=== PATIENT | male | born 1960 | race American Indian/Alaskan Native ===

== ENCOUNTER 2019-01-16 18:26 | Emergency (ER) | payer MEDICAID ==
--- NOTE | 2019-01-16 18:34 | Emergency Department Report ---
Blank Doc - Documentation Documentation: This is a 58-year-old male that presents with URI symptoms. This initial assessment/diagnostic orders/clinical plan/treatment(s) is/are subject to change based on patient's health status, clinical progression and re- assessment by fellow clinical providers in the ED. Further treatment and workup at subsequent clinical providers discretion. Patient/guardians urged not to elope from the ED as their condition may be serious if not clinically assessed and managed. Initial orders include: 1- Patient sent to [facility] for further evaluation and treatment 2- CXR
[2019-01-16 18:35] VITALS: BP 119/87
--- NOTE | 2019-01-16 20:45 | XRay Report ---
PROCEDURE: XR CHEST ROUTINE 2V TECHNIQUE: PA and lateral chest radiographs were obtained. HISTORY: cough COMPARISONS: None. FINDINGS: Heart: Normal. Mediastinum/Vessels: Normal. Lungs/Pleural space: Lungs are hyperinflated. There are no confluent infiltrates or mass lesions. Pl eural spaces are clear.. Bony thorax: Mild degree levoscoliosis is noted. IMPRESSION: COPD No acute pulmonary process. This document is electronically signed by Dion Galvan MD., January 16 2019 08:43:34 PM ET
--- NOTE | 2019-01-16 23:33 | Emergency Department Report ---
- General Chief Complaint: Upper Respiratory Infection Stated Complaint: BODY PAIN/FEVER Time Seen by Provider: 01/16/19 18:34 Source: patient Mode of arrival: Ambulatory Limitations: No Limitations - History of Present Illness Initial Comments: Pt is a 58 yo male who presents to the ED with c/o a cough that began two days ago. he states he has beige color sputum production. He has associated chills, diaphoresis, subjective fever, generalized body aches, and chest pain. He states he has substernal CP and describes it as a pressure. He is a current every day smoker. He denies any sick contacts. He has not tried any treatment. He has not taken any tylenol or ibuprofen. - Related Data Previous Rx's Medication Instructions Recorded Last Taken Type ALBUTEROL Inhaler (OR & NICU) 1 puff IH Q6HR PRN #200 inha 01/17/19 Unknown Rx [Proair] Azithromycin [Zithromax] 250 mg PO DAILY 5 Days #6 tablet 01/17/19 Unknown Rx Benzonatate [Tessalon Perles] 100 mg PO Q8HR PRN #20 capsule 01/17/19 Unknown Rx Prednisone [predniSONE 10 mg 10 mg PO .TAPER 6 Days #1 tab.ds.pk 01/17/19 Unknown Rx (6-Day Pack, 21 Tabs)] Allergies Allergy/AdvReac Type Severity Reaction Status Date / Time No Known Allergies Allergy Verified 05/25/16 12:29 ED Review of Systems ROS: Stated complaint: BODY PAIN/FEVER Other details as noted in HPI Comment: All other systems reviewed and negative ED Past Medical Hx - Past Medical History Previous Medical History?: No Hx Psychiatric Treatment: Yes - Surgical History Past Surgical History?: No - Social History Smoking Status: Current Every Day Smoker Substance Use Type: None - Medications Home Medications: Home Medications Medication Instructions Recorded Confirmed Last Taken Type ALBUTEROL Inhaler (OR & NICU) 1 puff IH Q6HR PRN #200 inha 01/17/19 Unknown Rx [Proair] Azithromycin [Zithromax] 250 mg PO DAILY 5 Days #6 tablet 01/17/19 Unknown Rx Benzonatate [Tessalon Perles] 100 mg PO Q8HR PRN #20 capsule 01/17/19 Unknown Rx Prednisone [predniSONE 10 mg 10 mg PO .TAPER 6 Days #1 tab.ds.pk 01/17/19 Unknown Rx (6-Day Pack, 21 Tabs)] ED Physical Exam - General Limitations: No Limitations General appearance: alert, in no apparent distress - Head Head exam: Present: atraumatic, normocephalic - Eye Eye exam: Present: normal appearance - ENT ENT exam: Present: mucous membranes moist - Respiratory Respiratory exam: Present: normal lung sounds bilaterally. Absent: respiratory distress, wheezes, rales, rhonchi, stridor, chest wall tenderness, accessory muscle use, decreased breath sounds, prolonged expiratory - Cardiovascular Cardiovascular Exam: Present: regular rate, normal rhythm, normal heart sounds. Absent: systolic murmur, rubs, gallop - Neurological Exam Neurological exam: Present: alert, oriented X3 - Psychiatric Psychiatric exam: Present: normal affect, normal mood - Skin Skin exam: Present: warm, dry, intact ED Course Vital Signs 01/16/19 01/16/19 18:33 18:59 Temperature 98.1 F Pulse Rate 94 H 95 H Respiratory 18 20 Rate Blood Pressure 119/87 O2 Sat by Pulse 96 97 Oximetry ED Medical Decision Making - Lab Data Result diagrams: 01/16/19 23:35 01/16/19 23:35 - EKG Data EKG shows normal: sinus rhythm, axis, intervals Rate: normal - EKG Data 01/17/19 05:25 LVH, non specific t wave changes, no STEMI - Radiology Data Radiology results: report reviewed PROCEDURE: XR CHEST ROUTINE 2V TECHNIQUE: PA and lateral chest radiographs were obtained. HISTORY: cough COMPARISONS: None. FINDINGS: Heart: Normal. Mediastinum/Vessels: Normal. Lungs/Pleural space: Lungs are hyperinflated. There are no confluent infiltrates or mass lesions. Pleural spaces are clear.. Bony thorax: Mild degree levoscoliosis is noted. IMPRESSION: COPD No acute pulmonary process. This document is electronically signed by Dion Galvan MD., January 16 2019 08:43:34 PM ET - Medical Decision Making Pt is a 58 yo male who presents to the ED with c/o a cough that began two days ago. he states he has beige color sputum production. He has associated chills, diaphoresis, subjective fever, generalized body aches, and chest pain. He states he has substernal CP and describes it as a pressure. He is a current every day smoker. He denies any sick contacts. He has not tried any treatment. He has not taken any tylenol or ibuprofen. CXR shows COPD otherwise normal. EKG with no acute abnormality. trop negative x2. Labs WNL. VSS. CP unlikely to be cardiac in nature, most likely due to frequent coughing. Will have pt follow up with PCP in the next 2-3 days. Advised to take all medication as prescribed for bronchitis. Return to the ED for any new or worsening symptoms. - Differential Diagnosis URI, PNA, Bronchitis, COPD Critical care attestation.: If time is entered above; I have spent that time in minutes in the direct care of this critically ill patient, excluding procedure time. ED Disposition Clinical Impression: COPD (chronic obstructive pulmonary disease) Qualifiers: COPD type: unspecified COPD Qualified Code(s): J44.9 - Chronic obstructive pulmonary disease, unspecified Acute bronchitis Qualifiers: Bronchitis organism: unspecified organism Qualified Code(s): J20.9 - Acute bronchitis, unspecified Disposition: - TO HOME OR SELFCARE Is pt being admited?: No Does the pt Need Aspirin: No Condition: Stable Instructions: How to Stop Smoking (ED), Acute Bronchitis (ED), Chronic Obstructive Pulmonary Disease (ED) Additional Instructions: Follow up with your primary care doctor in the next 2-3 days. Take all medication as prescribed. please stop smoking. Return to the emergency room for any new or worsening symptoms. Prescriptions: Prednisone [predniSONE 10 mg (6-Day Pack, 21 Tabs)] 10 mg PO .TAPER 6 Days #1 tab.ds.pk ALBUTEROL Inhaler (OR & NICU) [Proair] 1 puff IH Q6HR PRN #200 inha PRN Reason: Shortness Of Breath Benzonatate [Tessalon Perles] 100 mg PO Q8HR PRN #20 capsule PRN Reason: Cough Azithromycin [Zithromax] 250 mg PO DAILY 5 Days #6 tablet Referrals: MANJULA MATRE MD [Primary Care Provider] - 2-3 Days Time of Disposition: 04:40 Print Language: ALBANIAN
[2019-01-17 00:23] LABS: Basophils % (Auto) 0.4 % (0.0-1.8); Hematocrit 48.2 % (35.5-45.6); Hemoglobin 16.3 gm/dl (11.8-15.2); Lymphocytes # (Auto) 0.5 K/mm3 (1.2-5.4); Lymphocytes % (Auto) 11.6 % (13.4-35.0); Mean Corpuscular HGB Conc 34 % (32-34); Mean Corpuscular Volume 84 fl (84-94); Monocytes # (Auto) 0.5 K/mm3 (0.0-0.8); Monocytes % (Auto) 11.7 % (0.0-7.3); Platelet Count 177 K/mm3 (140-440); Red Blood Count 5.73 M/mm3 (3.65-5.03); Red Cell Distribution Width 14.3 % (13.2-15.2)
[2019-01-17 00:37] LABS: INR 0.98 (0.87-1.13)
[2019-01-17 00:38] LABS: Partial Thromboplastin Time 26.2 Sec. (24.2-36.6)
[2019-01-17 00:49] LABS: Alanine Aminotransferase 19 units/L (7-56); Albumin 4.1 g/dL (3.9-5); BUN/Creatinine Ratio 14; Blood Urea Nitrogen 10 mg/dL (9-20); Calcium 9.7 mg/dL (8.4-10.2); Hemolysis Index 8
== END 2019-01-17 04:50 | disposition home or self-care (01) ==
LOC: ED 18:26
DX: J20.9 Acute bronchitis, unspecified (principal); J44.9 Chronic obstructive pulmonary disease, unspecified; F17.200 Nicotine dependence, unspecified, uncomplicated
CPT/HCPCS: 36415; 71046; 80053; 84484; 85025; 85610; 85730; 93005; 93010

== ENCOUNTER 2019-03-25 10:39 | Emergency (ER) | payer MEDICAID ==
[2019-03-25 11:02] VITALS: BP 102/69
--- NOTE | 2019-03-25 11:09 | Emergency Department Report ---
Blank Doc - Documentation Documentation: This is a 58-year-old male that presents with groin pain with radiation to nisreen ticles x1 month. Also has difficulty urinating. This initial assessment/diagnostic orders/clinical plan/treatment(s) is/are subject to change based on patient's health status, clinical progression and re- assessment by fellow clinical providers in the ED. Further treatment and workup at subsequent clinical providers discretion. Patient/guardians urged not to elope from the ED as their condition may be serious if not clinically assessed and managed. Initial orders include: 1- Patient sent to [facility] for further evaluation and treatment 2- Doppler testicular US 3- UA
--- NOTE | 2019-03-25 11:33 | Emergency Department Report ---
ED Abdominal Pain HPI - General Chief Complaint: Urogenital-Male Stated Complaint: GROIN PAIN/EXTREME Time Seen by Provider: 03/25/19 11:08 Source: patient Mode of arrival: Ambulatory Limitations: No Limitations - History of Present Illness Initial Comments: Mr. Valdes is a 58 yo male who presents with groin pain and bulge for one month. It has been getting larger and larger. Does not go in. 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 Mild pain at this time. No constipation. MD Complaint: other (groin pain) -: Gradual, month(s) (1) Radiation: none Migration to: no migration Severity: mild Quality: aching Consistency: constant Worsens With: movement Associated Symptoms: denies other symptoms - Related Data Previous Rx's Medication Instructions Recorded Last Taken Type ALBUTEROL Inhaler (OR & NICU) 1 puff IH Q6HR PRN #200 inha 01/17/19 Unknown Rx [Proair] Azithromycin [Zithromax] 250 mg PO DAILY 5 Days #6 tablet 01/17/19 Unknown Rx Benzonatate [Tessalon Perles] 100 mg PO Q8HR PRN #20 capsule 01/17/19 Unknown Rx Prednisone [predniSONE 10 mg 10 mg PO .TAPER 6 Days #1 tab.ds.pk 01/17/19 Unknown Rx (6-Day Pack, 21 Tabs)] Allergies Allergy/AdvReac Type Severity Reaction Status Date / Time No Known Allergies Allergy Verified 03/25/19 11:00 ED Review of Systems ROS: Stated complaint: GROIN PAIN/EXTREME Other details as noted in HPI Comment: All other systems reviewed and negative Constitutional: denies: fever, malaise Gastrointestinal: abdominal pain ED Past Medical Hx - Past Medical History Previous Medical History?: No Hx Psychiatric Treatment: Yes - Surgical History Past Surgical History?: No - Social History Smoking Status: Current Every Day Smoker Substance Use Type: Alcohol - Medications Home Medications: Home Medications Medication Instructions Recorded Confirmed Last Taken Type ALBUTEROL Inhaler (OR & NICU) 1 puff IH Q6HR PRN #200 inha 01/17/19 Unknown Rx [Proair] Azithromycin [Zithromax] 250 mg PO DAILY 5 Days #6 tablet 01/17/19 Unknown Rx Benzonatate [Tessalon Perles] 100 mg PO Q8HR PRN #20 capsule 01/17/19 Unknown Rx Prednisone [predniSONE 10 mg 10 mg PO .TAPER 6 Days #1 tab.ds.pk 01/17/19 Unknown Rx (6-Day Pack, 21 Tabs)] ED Physical Exam - General Limitations: No Limitations General appearance: alert, in no apparent distress - Head Head exam: Present: atraumatic, normocephalic - Eye Eye exam: Present: normal appearance - ENT ENT exam: Present: mucous membranes moist - Neck Neck exam: Present: normal inspection, full ROM - Respiratory Respiratory exam: Present: normal lung sounds bilaterally. Absent: respiratory distress, wheezes, rales, rhonchi - Cardiovascular Cardiovascular Exam: Present: regular rate, normal rhythm, normal heart sounds. Absent: systolic murmur, diastolic murmur, rubs, gallop - GI/Abdominal GI/Abdominal exam: Present: soft, normal bowel sounds. Absent: distended, tenderness, guarding - Rectal Rectal exam: Present: deferred - exam: Present: normal inspection, circumcision, other (small inguinal hernia right). Absent: testicular tenderness, urethral discharge, scrotal swelling, vertical testicular lie External exam: Present: normal external exam - Extremities Exam Extremities exam: Present: normal inspection - Back Exam Back exam: Present: normal inspection - Neurological Exam Neurological exam: Present: alert, oriented X3 - Psychiatric Psychiatric exam: Present: normal affect, normal mood - Skin Skin exam: Present: warm, dry, intact, normal color. Absent: rash ED Course Vital Signs 03/25/19 11:00 Temperature 98.3 F Pulse Rate 86 Respiratory 16 Rate Blood Pressure 102/69 O2 Sat by Pulse 98 Oximetry ED Medical Decision Making - Medical Decision Making Right inguinal hernia small easily reduced referred to general surgery on elective basis Critical care attestation.: If time is entered above; I have spent that time in minutes in the direct care of this critically ill patient, excluding procedure time. ED Disposition Clinical Impression: Inguinal hernia, right Disposition: [id number]-01 TO HOME OR SELFCARE Is pt being admited?: No Does the pt Need Aspirin: No Condition: Stable Instructions: Inguinal Hernia (ED) Referrals: DASHAWN WALLACE MD [Staff Physician] - [facility]
== END 2019-03-25 11:45 | disposition home or self-care (01) ==
LOC: ED 10:39
DX: K40.90 Unilateral inguinal hernia, without obstruction or gangrene, not specified as recurrent (principal); F17.200 Nicotine dependence, unspecified, uncomplicated
CPT/HCPCS: 87086; 99283

== ENCOUNTER 2019-11-15 10:09 | Outpatient (CLI) | payer MEDICAID ==
--- NOTE | 2019-11-15 11:04 | XRay Report ---
CHEST 2 VIEWS INDICATION / CLINICAL INFORMATION: ENCOUNTER FOR PREPROCEDURAL CARDIOVASCULAR EXAM. COMPARISON: 2 views of the chest from 01/16/2019. FINDINGS: SUPPORT DEVICES: None. HEART / MEDIASTINUM: No significant abnormality. LUNGS / PLEURA: No significant pulmonary or pleural abnormality. No pneumothorax. ADDITIONAL FINDINGS: No significant additional findings. IMPRESSION: 1. No acute abnormality of the chest. Signer Name: Sam Shukla MD Signed: 11/15/2019 11:00 AM Workstation Name: [id number]
== END 2019-11-15 10:10 | disposition home or self-care (01) ==
LOC: XRAY 10:09
PROVIDERS: ATTEND Internal Medicine
DX: Z01.810 Encounter for preprocedural cardiovascular examination (principal)
CPT/HCPCS: 71046

== ENCOUNTER 2019-12-08 12:56 | Emergency (ER) | payer MEDICAID ==
[2019-12-08 14:16] LABS: Basophils % (Auto) 0.3 % (0.0-1.8); Hematocrit 50.1 % (35.5-45.6); Hemoglobin 16.4 gm/dl (11.8-15.2); Lymphocytes # (Auto) 0.7 K/mm3 (1.2-5.4); Lymphocytes % (Auto) 10.6 % (13.4-35.0); Mean Corpuscular HGB Conc 33 % (32-34); Mean Corpuscular Volume 84 fl (84-94); Monocytes # (Auto) 0.8 K/mm3 (0.0-0.8); Monocytes % (Auto) 10.9 % (0.0-7.3); Platelet Count 185 K/mm3 (140-440); Red Blood Count 5.94 M/mm3 (3.65-5.03); Red Cell Distribution Width 14.5 % (13.2-15.2)
[2019-12-08 14:38] LABS: Alanine Aminotransferase 14 units/L (7-56); Albumin 4.1 g/dL (3.9-5); BUN/Creatinine Ratio 11; Blood Urea Nitrogen 10 mg/dL (9-20); Calcium 9.5 mg/dL (8.4-10.2); Hemolysis Index 16
--- NOTE | 2019-12-08 17:02 | Emergency Department Report ---
Chief Complaint: Pain General Stated Complaint: HOT & COLD SEATS PAIN IN GROIN Time Seen by Provider: 12/08/19 13:32 - ROS Review of Systems: 59 y/o M p/w a cc of AP. H/o hernias. no n/v. Last bm this AM WNL - Exam Vital Signs: Vital Signs 12/08/19 12/08/19 13:02 13:32 Temperature 98.4 F Pulse Rate 102 H 100 H Respiratory 18 Rate Blood Pressure 139/96 O2 Sat by Pulse 97 97 Oximetry MSE screening note: Focused history and physical exam performed. Due to findings the following was ordered: cbc, cmp, lipase ct abd/pel ED Medical Decision Making - Lab Data Result diagrams: 12/08/19 14:01 12/08/19 14:01 ED Disposition for MSE Condition: Stable
[2019-12-08] MEDS ORDERED: METOCLOPRAMIDE 10 MG TAB PO ONE (17:30)
[2019-12-08] MEDS ORDERED: ACETAMINOPHEN 325 MG/10.15 ML ORAL LIQD UNIT DOSE PO ONE (17:30)
--- NOTE | 2019-12-08 17:31 | Emergency Department Report ---
ED General Adult HPI - General Chief complaint: Pain General Stated complaint: HOT & COLD SEATS PAIN IN GROIN Time Seen by Provider: 12/08/19 13:32 Source: patient, RN notes reviewed, old records reviewed Mode of arrival: Ambulatory Limitations: No Limitations - History of Present Illness Initial comments: The patient is a pleasant 59-year-old gentleman. The patient is not known to myself previously. The patient presents to the ER with multiple complaints. His first complaint is headache. The headache is frontal and bitemporal. The headache is intermittent over the past few days. He gets a headache like this once or twice a month. The headache is not described as sudden or maximal in onset. It is not described as the most intense headache of his life. There is no neck pain, there is no neck stiffness. He endorses an additional complaints of decreased appetite, bilateral inguinal swelling and discomfort, right greater than left, and this has been present for a few months. Apparently, he has tried to follow-up with an outpatient surgeon, but has not been able to secure outpatient surgical follow-up. He denies irritative and obstructive urinary symptoms. He endorses black stool. He does not take Pepto-Bismol, and he does not take anticoagulant therapy. He also endorses intermittent hot and cold feeling. He does not have chest pain. He does not have shortness of breath. He denies documented fever. He reports that he has some difficulty swallowing. He is able to drink liquids without difficulty. -: Gradual, week(s), month(s) Location: abdomen Quality: aching Consistency: intermittent Improves with: rest Worsens with: movement - Related Data Previous Rx's Medication Instructions Recorded Last Taken Type Albuterol INH(or & Nicu Only) 1 puff IH Q6HR PRN #200 inha 01/17/19 Unknown Rx [Proair] Azithromycin [Zithromax] 250 mg PO DAILY 5 Days #6 tablet 01/17/19 Unknown Rx Benzonatate [Tessalon Perles] 100 mg PO Q8HR PRN #20 capsule 01/17/19 Unknown Rx Prednisone [predniSONE 10 mg 10 mg PO .TAPER 6 Days #1 tab.ds.pk 01/17/19 Unknown Rx (6-Day Pack, 21 Tabs)] Acetaminophen [Non-Aspirin Extra 500 mg PO Q6HR PRN #30 tablet 12/08/19 Unknown Rx Strength] Ondansetron [Zofran Odt] 4 mg PO Q8HR PRN #20 tab.rapdis 12/08/19 Unknown Rx Allergies Allergy/AdvReac Type Severity Reaction Status Date / Time No Known Allergies Allergy Verified 03/25/19 11:00 ED Review of Systems ROS: Stated complaint: HOT & COLD SEATS PAIN IN GROIN Other details as noted in HPI Constitutional: malaise. denies: fever Eyes: denies: eye discharge ENT: denies: congestion Respiratory: denies: wheezing Cardiovascular: denies: syncope Gastrointestinal: nausea. denies: hematemesis, hematochezia Genitourinary: other (Right sided inguinal pain and swelling). denies: dysuria Musculoskeletal: denies: myalgia Skin: denies: lesions Neurological: weakness ED Past Medical Hx - Past Medical History Previous Medical History?: Yes Hx Psychiatric Treatment: Yes Additional medical history: Wale inquinal hernia - Surgical History Past Surgical History?: No - Social History Smoking Status: Heavy Tobacco Smoker Substance Use Type: None - Medications Home Medications: Home Medications Medication Instructions Recorded Confirmed Last Taken Type Albuterol INH(or & Nicu Only) 1 puff IH Q6HR PRN #200 inha 01/17/19 Unknown Rx [Proair] Azithromycin [Zithromax] 250 mg PO DAILY 5 Days #6 tablet 01/17/19 Unknown Rx Benzonatate [Tessalon Perles] 100 mg PO Q8HR PRN #20 capsule 01/17/19 Unknown Rx Prednisone [predniSONE 10 mg 10 mg PO .TAPER 6 Days #1 tab.ds.pk 01/17/19 Unknown Rx (6-Day Pack, 21 Tabs)] Acetaminophen [Non-Aspirin Extra 500 mg PO Q6HR PRN #30 tablet 12/08/19 Unknown Rx Strength] Ondansetron [Zofran Odt] 4 mg PO Q8HR PRN #20 tab.rapdis 12/08/19 Unknown Rx ED Physical Exam - General Limitations: No Limitations, Other (During the entire history and physical examination, 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 Absent: nystagmus - ENT ENT exam: Present: normal exam, normal orophraynx, mucous membranes moist, normal external ear exam - Neck Neck exam: Present: normal inspection, full ROM. Absent: tenderness, meningismus - Respiratory Respiratory exam: Present: normal lung sounds bilaterally. Absent: respiratory distress - Cardiovascular Cardiovascular Exam: Present: regular rate, normal rhythm, normal heart sounds. Absent: bradycardia, tachycardia, irregular rhythm, systolic murmur, diastolic murmur, rubs, gallop - GI/Abdominal GI/Abdominal exam: Present: soft, normal bowel sounds, hernia (There is a right- sided inguinal hernia, which is easily reducible). Absent: distended, tenderness, guarding, rebound, rigid, pulsatile mass - Rectal Rectal exam: Present: normal inspection, normal rectal tone. Absent: heme (-) stool, heme (+) stool, black stool, bloody stool - exam: Present: normal inspection, other (There is normal testicular lie. Th ere is normal cremasteric reflex. There is no testicular tenderness. There is no testicular swelling). Absent: testicular tenderness External exam: Present: normal external exam. Absent: erythema, swelling, lacerations, ecchymosis - Extremities Exam Extremities exam: Present: normal inspection, full ROM, other (2+ pulses noted in the bilateral upper and lower extremities. There is no palpable cord. negative Homans sign. Muscular compartments are soft. The pelvis is stable.). Absent: pedal edema, joint swelling, calf tenderness - Back Exam Back exam: Present: normal inspection, full ROM. Absent: tenderness, CVA tenderness (R), CVA tenderness (L), paraspinal tenderness, vertebral tenderness - Neurological Exam Neurological exam: Present: alert, oriented X3, normal gait, other (There is no facial droop. The tongue is midline. Extraocular movements are intact bilaterally. There is 5 out of 5 strength in bilateral upper and lower extre mities. Sensation is intact to light touch bilateral upper and lower extremities. There is a normal gait.). Absent: motor sensory deficit - Psychiatric Psychiatric exam: Present: normal affect, normal mood - Skin Skin exam: Present: warm, dry, intact, normal color. Absent: rash ED Course Vital Signs 12/08/19 12/08/19 13:02 13:32 Temperature 98.4 F Pulse Rate 102 H 100 H Respiratory 18 Rate Blood Pressure 139/96 O2 Sat by Pulse 97 97 Oximetry - Reevaluation(s) Reevaluation #1: 12/08/19 18:14 Differential diagnosis, including not limited to: Migraine headache, tension headache, cluster headache, inguinal hernia, GERD, gastritis, hiatal hernia, enteritis Assessment and plan: 59-year-old gentleman with multiple complaints. Complaints #1; headache GCS 15, NIH score of 0. No past-pointing, no pronator drift, normal [id number]-tp-[id number], normal gait, GCS 15, NIH score 0. Headache historically has numerous benign features, we will treat his headache supportively and symptomatically with Reglan and Tylenol. There is no neck pain or neck stiffness, no fever, and based off of the historical features, this is very unlikely to be dangerous etiology of headache. Complaints #2, acute on chronic inguinal hernia; hernia is reducible. It is minimally tender. CT scan abdomen pelvis shows no acute surgical process. Rectal exam shows brown stool that is guaiac negative. As a courtesy, I will discuss with our general surgeon on-call to help expedite outpatient follow-up. Patient is already tolerating liquid feeds, and can be discharged with Reglan, acetaminophen, outpatient follow-up. No documented fever in the ER. CK reviewed and appreciated. Tachycardia resolved. Tolerating liquid feeds. This patient does not appear to have an emergent medical condition at this time. He can follow-up with an outpatient. - Consultations Consultation #1: 12/08/19 18:21 d/w Dr Kimo Bailey, who will be happy to see the patient as an outpatient this week ED Medical Decision Making - Lab Data Result diagrams: 12/08/19 14:01 12/08/19 14:01 Vital Signs 12/08/19 12/08/19 13:02 13:32 Temperature 98.4 F Pulse Rate 102 H 100 H Respiratory 18 Rate Blood Pressure 139/96 O2 Sat by Pulse 97 97 Oximetry Lab Results 12/08/19 12/08/19 12/08/19 Range/Units 14:01 14:01 14:01 WBC 7.0 (4.5-11.0) K/mm3 RBC 5.94 H (3.65-5.03) M/mm3 Hgb 16.4 H (11.8-15.2) gm/dl Hct 50.1 H (35.5-45.6) % MCV 84 (84-94) fl MCH 28 (28-32) pg MCHC 33 (32-34) % RDW 14.5 (13.2-15.2) % Plt Count 185 (140-440) K/mm3 Lymph % (Auto) 10.6 L (13.4-35.0) % Tift % (Auto) 10.9 H (0.0-7.3) % Eos % (Auto) 0.0 (0.0-4.3) % Baso % (Auto) 0.3 (0.0-1.8) % Lymph # 0.7 L (1.2-5.4) K/mm3 Tift # 0.8 (0.0-0.8) K/mm3 Eos # 0.0 (0.0-0.4) K/mm3 Baso # 0.0 (0.0-0.1) K/mm3 Seg Neutrophils % 78.2 H (40.0-70.0) % Seg Neutrophils # 5.5 (1.8-7.7) K/mm3 Sodium 136 L (137-145) mmol/L Potassium 4.2 (3.6-5.0) mmol/L Chloride 99.7 (98-107) mmol/L Carbon Dioxide 22 (22-30) mmol/L Anion Gap 19 mmol/L BUN 10 (9-20) mg/dL Creatinine 0.9 (0.8-1.5) mg/dL Estimated GFR > 60 ml/min BUN/Creatinine Ratio 11 % Glucose 94 (75-100) mg/dL Calcium 9.5 (8.4-10.2) mg/dL Total Bilirubin 0.30 (0.1-1.2) mg/dL AST 24 (5-40) units/L ALT 14 (7-56) units/L Alkaline Phosphatase 95 (35-129) units/L Total Creatine Kinase 431 H (55-170) units/L Total Protein 7.6 (6.3-8.2) g/dL Albumin 4.1 (3.9-5) g/dL Albumin/Globulin Ratio 1.2 % Lipase 15 (13-60) units/L - Radiology Data Radiology results: report reviewed, image reviewed Print Report Referring Physician: LINDA APPLE Patient Name: TONO FERNANDES Date of : 1960 Sex: Male Report Date: 2019-12-08 Report Status: Finalized Findings [facility] [address] [place] [address] Cat Scan Report Signed Patient: TONO FERNANDES MR#: [id number] : 1960 Acct:[id number] Age/Sex: 59 / M ADM Date: 12/08/19 Loc: ED Attending Dr: Ordering Physician: LINDA APPLE MD Date of Service: 12/08/19 Procedure(s): CT abdomen pelvis w con Accession Number(s): [id number] cc: LINDA APPLE MD CT ABDOMEN AND PELVIS WITH CONTRAST INDICATION / CLINICAL INFORMATION: diffuse abd pain, h/o hernias. TECHNIQUE: Axial CT images were obtained through the abdomen and pelvis after 100 mL Omnipaque [address] scans at this location are performed using CT dose reduction for ALARA by means of automated exposure control. COMPARISON: None available. FINDINGS: LOWER CHEST: No significant abnormality. LIVER: No significant abnormality. GALLBLADDER: Absent BILE DUCTS: No significant abnormality. PANCREAS: No significant abnormality. SPLEEN: No significant abnormality. ADRENALS: No significant abnormality. RIGHT KIDNEY and URETER: Simple cysts but no significant abnormality. LEFT KIDNEY and URETER: Simple cysts but no significant abnormality. STOMACH and SMALL BOWEL: Fluid- filled, nondilated loops of small bowel. No obstruction. COLON: No significant abnormality. APPENDIX: Not visualized. PERITONEUM: Small amount of free fluid in the pelvis. No free air. No fluid collection. LYMPH NODES: No significant adenopathy. AORTA and ARTERIES: No significant abnormality. IVC and VEINS: No significant abnormality. URINARY BLADDER: No significant abnormality. REPRODUCTIVE ORGANS: No significant abnormality. ADDITIONAL FINDINGS: Small amount of fluid in the right inguinal canal but no significant inguinal hernia. SKELETAL SYSTEM: No significant abnormality. IMPRESSION: 1. Fluid-filled, nondilated small bowel may represent enteritis. 2. No significant abdominal wall hernia. Signer Name: Zhanna Valle MD Signed: 12/08/2019 6:02 PM Workstation Name: [id number] Transcribed By: DT Dictated By: Fish Valle MD Sabine ctronically Authenticated By: Fish Valle MD Signed Date/Time: 12/08/19 1802 DD/ 175 TD/TT: Critical care attestation.: If time is entered above; I have spent that time in minutes in the direct care of this critically ill patient, excluding procedure time. ED Disposition Clinical Impression: Inguinal hernia of right side without obstruction or gangrene Disposition: - TO HOME OR SELFCARE Is pt being admited?: No Does the pt Need Aspirin: No Condition: Stable Additional Instructions: Drink 4 to 6 cups of water per day. Avoid consumption of Motrin, ibuprofen, Naprosyn, Aleve and alcohol. Make certain to eat plenty of fiber, vegetables, and lean protein. Take the pain medication and nausea medication as needed and directed. Follow-up with either of the general surgeons by the end of the week. Return to the emergency room right away with new, worsened or different symptoms, or symptoms not present on the initial emergency room evaluation. If patient takes metformin medication, he should not take it for the next 2 days. Referrals: ROB MARTINEZ DO [Staff Physician] - 3-5 Days PRIMARY CAREMD [Primary Care Provider] - 3-5 Days BRITTANY BAILEY MD [Staff Physician] - 2-3 Days ([facility] [phone])
--- NOTE | 2019-12-08 18:06 | Cat Scan Report ---
CT ABDOMEN AND PELVIS WITH CONTRAST INDICATION / CLINICAL INFORMATION: diffuse abd pain, h/o hernias. TECHNIQUE: Axial CT images were obtained through the abdomen and pelvis after 100 mL Omnipaque [address] scans at this location are performed using CT dose reduction for ALARA by means of automated exposure control. COMPARISON: None available. FINDINGS: LOWER CHEST: No significant abnormality. LIVER: No significant abnormality. GALLBLADDER: Absent BILE DUCTS: No significant abnormality. PANCREAS: No significant abnormality. SPLEEN: No significant abnormality. ADRENALS: No significant abnormality. RIGHT KIDNEY and URETER: Simple cysts but no significant abnormality. LEFT KIDNEY and URETER: Simple cysts but no significant abnormality. STOMACH and SMALL BOWEL: Fluid-filled, nondilated loops of small bowel. No obstruction. COLON: No significant abnormality. APPENDIX: Not visualized. PERITONEUM: Small amount of free fluid in the pelvis. No free air. No fluid collection. LYMPH NODES: No significant adenopathy. AORTA and ARTERIES: No significant abnormality. IVC and VEINS: No significant abnormality. URINARY BLADDER: No significant abnormality. REPRODUCTIVE ORGANS: No significant abnormality. ADDITIONAL FINDINGS: Small amount of fluid in the right inguinal canal but no significant inguinal he rnia. SKELETAL SYSTEM: No significant abnormality. IMPRESSION: 1. Fluid-filled, nondilated small bowel may represent enteritis. 2. No significant abdominal wall hernia. Signer Name: Zhanna Valle MD Signed: 12/08/2019 6:02 PM Workstation Name: [id number]
[2019-12-08 18:34] VITALS: BP 137/97
== END 2019-12-08 18:45 | disposition home or self-care (01) ==
LOC: ED 12:56
DX: K40.90 Unilateral inguinal hernia, without obstruction or gangrene, not specified as recurrent (principal); Z79.899 Other long term (current) drug therapy
CPT/HCPCS: 36415; 74177; 80053; 82271; 82550; 83690; 85025; 99284; Q9967

== ENCOUNTER 2020-06-11 09:08 | Day surgery (SDC) | payer MEDICAID ==
[2020-06-10 09:28] LABS: Hematocrit 47.6 % (35.5-45.6); Hemoglobin 15.8 gm/dl (11.8-15.2); Mean Corpuscular HGB Conc 33 % (32-34); Mean Corpuscular Volume 85 fl (84-94); Platelet Count 180 K/mm3 (140-440); Red Blood Count 5.59 M/mm3 (3.65-5.03); Red Cell Distribution Width 14.7 % (13.2-15.2)
[2020-06-10 09:46] LABS: BUN/Creatinine Ratio 11; Blood Urea Nitrogen 10 mg/dL (9-20); Calcium 9.6 mg/dL (8.4-10.2); Hemolysis Index 5
--- NOTE | 2020-06-10 12:11 | Short Stay Summary ---
Short Stay Documentation Date of service: 06/11/20 - History H&P: obtained from office - Allergies and Medications Current Medications: Allergies No Known Allergies Allergy (Verified 03/25/19 11:00) Home Medications Medication Instructions Recorded Confirmed Last Taken Type Centrum Silver Men Tablet 1 tab PO DAILY 06/03/20 06/03/20 Unknown History - Physical exam General appearance: no acute distress Lungs: Normal air movement Neurological: Normal speech - Brief post op/procedure progress note Date of procedure: 06/11/20 (dictation: [id number]) Pre-op diagnosis: BIH Post-op diagnosis: same Procedure: robotic lap BIH repair IVF 1100cc EBL min Anesthesia: GETA Findings: BIH - right>left Surgeon: BRITTANY LICONA Straw Baler: ROB MARTINEZ Estimated blood loss: minimal Pathology: none Condition: stable - Hospital course Hospital course: uneventful - Disposition Condition at discharge: Stable Disposition: DC-01 TO HOME OR SELFCARE Short Stay Discharge Plan Activity: advance as tolerated Diet: regular Wound: open to air, keep clean and dry Special Instructions: no heavy lifting Additional Instructions: Post Operative Instructions Activity: no heavy lifting for next 1 week. May shower tomorrow. Pat dry the wound or wounds. Keep incision sites clean and dry After surgery, start with a light diet. Consider starting with liquids. If you do well, you can advance to a regular diet as you feel comfortable. Apply an ice pack to the wound or wounds for 10-20 minutes at a time. Do this at least 4-5 times a day. You can do it more if he would like. Pain Medication Schedule for the first 2 days after surgery: Gabapentin 300mg twice a day Tylenol 500mg four times a day (every 6 hours) Celebrex 200mg twice a day After the first 2 days, then take alternating doses of ibuprofen and Tylenol as needed for pain. Take 600 mg of ibuprofen every 6 hours as needed. Take 500 mg of Tylenol every 6 hours as needed. You should alternate these 2 medicines. Make sure you take the ibuprofen with food. It is very important that you use the prescription narcotic pain medicine (hydrocodone) only for very severe pain. Do not take the narcotic medicine before you try using all the medications listed above. We will call you in a couple of days to see how youre doing. If you have any questions or concerns, always feel free to call the clinic ([phone]) at any time. Follow up with: PRIMARY MD LORI [Primary Care Provider] - 7 Days BRITTANY LICONA MD [Staff Physician] - 7 Days Forms: Outpatient Surgery DC Inst. Prescriptions: RX: Celecoxib [celeBREX] 200 mg PO BID #4 capsule RX: Gabapentin 300 mg PO BID #4 capsule RX: HYDROcodone/APAP 5-325 [Edmonds 5-325 mg TAB] 1 each PO Q6HR PRN #10 tablet PRN Reason: Pain , Severe (7-10)
[~2020-06-11 09:08] MED LIST: ACETAMINOPHEN 500 MG TAB PO NR; CELECOXIB 200 MG CAP PO NR; GABAPENTIN 300 MG CAP PO SCH; LACTATED RINGERS 1,000 ML IV SCH; MIDAZOLAM 2 MG/2 ML INJ IV NR; ceFAZolin/Water 2 GM/20 ML 2 GM/20 ML SYRINGE IV NR
--- NOTE | 2020-06-11 09:54 | Anesthesia Consultation ---
Anesthesia Consult and Med Hx Date of service: 06/11/20 - Airway Anesthetic Teeth Evaluation: Edentulous ROM Head & Neck: Adequate Mental/Hyoid Distance: Adequate Mallampati Class: Class II Intubation Access Assessment: Probably Good - Pulmonary Exam CTA: Yes - Cardiac Exam Cardiac Exam: RRR - Pre-Operative Health Status ASA Pre-Surgery Classification: ASA2 Proposed Anesthetic Plan: General - Pulmonary Hx Smoking: Yes (40pk yr hx) Hx Respiratory Symptoms: No Hx Sleep Apnea: No ([place] PRE SCREEN LOW RISK.) - Cardiovascular System Hx Hypertension: No (elevated in preop, believes related to anxiety about surgery) Hx Heart Attack/AMI: No Hx Percutaneous Transluminal Coronary Angioplasty (PTCA): No Hx Cardia Arrhythmia: No - Central Nervous System CVA: No - Gastrointestinal Hx Gastroesophageal Reflux Disease: No - Endocrine Hx Renal Disease: No Hx Liver Disease: No Hx Insulin Dependent Diabetes: No Hx Non-Insulin Dependent Diabetes: No Hx Thyroid Disease: No - Other Systems Hx Obesity: No - Additional Comments Anesthesia Medical History Comments: No prior GA. No FHx anesthetic complications.
--- NOTE | 2020-06-11 09:54 | Anesthesia Day of Surgery ---
Anesthesia Day of Surgery - Day of Surgery Patient Examined: Yes Patient H&P Reviewed: Yes Patient is NPO: Yes
[2020-06-11] MEDS ORDERED: HYDROmorphone 1 MG/1 ML INJ IV PRN (10:00)
[2020-06-11] MEDS ORDERED: propofoL 200 MG/20 ML VIAL IV ONE (10:32)
[2020-06-11] MEDS ORDERED: HYDROmorphone 1 MG/1 ML INJ ONE (10:32)
[2020-06-11] MEDS ORDERED: LIDOCAINE MPF (2%) 20 MG/1 ML VIAL 5 ML ONE (10:33)
[2020-06-11] MEDS ORDERED: ROCURONIUM 50 MG/5 ML INJ IV ONE (10:33)
[2020-06-11] MEDS ORDERED: BUPIVACAINE-EPINEPHRINE/PF 0.25%-1:200,000 (30 ML) VIAL INFILTRATI ONE ×2 (10:36→11:52)
[2020-06-11] MEDS ORDERED: LIDOCAINE (1%) 10 MG/1 ML VIAL 20 ML MDV ONE (10:36)
[2020-06-11] MEDS ORDERED: dexAMETHasone 20 MG/5 ML VIAL ONE (11:32)
[2020-06-11] MEDS ORDERED: ONDANSETRON 4 MG/2 ML INJ ONE (11:32)
[2020-06-11] MEDS ORDERED: LIDOCAINE (1%) 10 MG/1 ML VIAL 20 ML MDV INFILTRATI ONE (11:52)
[2020-06-11] MEDS ORDERED: SODIUM CHLORIDE 0.9% IRR 1,000 ML BOTTLE IR ONE (11:52)
[2020-06-11] MEDS ORDERED: LACTATED RINGERS 1,000 ML ONE (13:12)
[2020-06-11] MEDS ORDERED: KETOROLAC 30 MG/1 ML INJ ONE (13:12)
[2020-06-11] MEDS ORDERED: GLYCOPYRROLATE 0.4 MG/2 ML INJ ONE (13:30)
[2020-06-11] MEDS ORDERED: NEOSTIGMINE 10MG/10 ML INJ MDV ONE (13:30)
--- NOTE | 2020-06-11 14:26 | Post Anesthesia Evaluation ---
- Post Anesthesia Evaluation Patient Participated: Yes Airway Patent: Yes Stable Respiratory Function: Yes Nausea/Vomiting: No Temp > 96.8F: Yes Pain Manageable: Yes Adequeate Hydration: Yes Anesthesia Complications: No
[2020-06-11 20:34] VITALS: BP 151/83
--- NOTE | 2020-06-11 23:05 | Operative Report ---
PREOPERATIVE DIAGNOSIS: Bilateral inguinal hernias. POSTOPERATIVE DIAGNOSIS: Bilateral inguinal hernias. PROCEDURE: Robotic-assisted laparoscopic bilateral inguinal herniorrhaphy. ATTENDING PHYSICIAN: Arnie Bailey MD COMPUTER AIDED DESIGN DESIGNER: Dr. Lombardi. ANESTHESIA: General. ESTIMATED BLOOD LOSS: Minimal. FLUIDS: 1100 mL. FINDINGS: Bilateral indirect inguinal hernias, right greater than left. IMPLANTS: Bard 3DMax mesh right and left large. DRAINS: None. COMPLICATIONS: None. DISPOSITION: Stable, transferred to Recovery. INDICATIONS: This is a 59-year-old male who presented to the office with complaints of a progressively enlarging right inguinal hernia. On exam, he was also noted to have a left inguinal hernia. The patient is assessed to be in need for bilateral inguinal hernia ____ robotically. Procedure, risks, benefits were explained to the patient. Risks included but were not limited to infection, bleeding, pain, injury to surrounding structures, possible need for further procedures in the future, possible recurrence. The patient understood and consented. OPERATIVE NOTE: The patient was brought to the operating room and placed on the table in supine position. After adequate general anesthesia was established, the patient was prepped and draped in usual sterile fashion. SCDs were in place. Antibiotics have been given. All pressure points were padded. Timeout was called. I began by placing a Veress needle in the left upper quadrant. I was able to insufflate on the first attempt. This was replaced with a 5 mm port using the Optiview technique. From there, we assessed the inguinal regions. The patient indeed had bilateral inguinal hernias. There were no contents within the hernia sacs. Under direct vision, a 12 mm port was placed in the supraumbilical position. The 5 mm port was replaced with an 8 and then another 8 was placed on the other side on the right side of the abdomen. The patient was placed in Trendelenburg position. Bed was flexed. Robot was docked. I began by creating the preperitoneal flap. The right inguinal hernia was quite large and extended a fair distance into the canal. It had been present for a long time and so naturally was quite thickened and densely adhered to the surrounding structures. Extra time was required to complete the dissection. Ultimately, we ended up dissecting out most of the sac; however, because it had been there so long and so densely scarred, I ended up dividing the sac as far distal as possible. We had dissected out the cord structures, so I very clearly identified where they were before dividing the sac. Once the sac was divided, I then continued on to the other side and did the same dissection, we had a very nice complete preperitoneal dissection from left to right pubic symphysis. All were very nicely exposed. Cord structures were very easily seen. We then placed the mesh, it laid very nicely. We secured it to the pubic tubercle on each side and to each other with 2-0 Vicryl sutures and then they were secured laterally with 2-0 Vicryl sutures. Once this was done, we had placed an Angiocath on the right side just behind the mesh to help decompress the scrotum as it would naturally fill up with air after the sac had been removed. I then closed the peritoneal flap with two 3-0 V-Loc sutures. We used an extra V-Loc suture on the left side because there were some gaps. At the end, it looked very good and then another 3-0 V-Loc suture to close the hole in the peritoneum from where we had divided the sac on the right. No division of the sac was required on the left, we were able to dissect it out completely. Once this was done, we then converted back to laparoscopic case, all the needles were removed. We had placed a Ray-Sacha earlier and that was removed. Everything looked very good. He was hemostatic. We then decompressed the abdomen. We left the Angiocath in place for further decompression. We closed the 12 mm port site with an open technique using a 2-0 PDS suture with a [id number] stitch. It came together very nicely. Local was injected. Skin was closed with 4-0 Monocryl subcuticular stitches. Skin was cleaned and dried. Dermabond was placed. I compressed the scrotum and inguinal regions to get out as much air as possible before removing the Angiocath. The patient tolerated the procedure well. There were no complications. All counts were correct at the end of the case. I did speak to the by phone at the end of the case. She was appreciative. JOB# [id number] TJ/HEATHER
== END 2020-06-11 09:09 | disposition home or self-care (01) ==
LOC: OR 09:08
PROVIDERS: ATTEND Surgery
DX: K40.20 Bilateral inguinal hernia, without obstruction or gangrene, not specified as recurrent (principal); Z11.59 Encounter for screening for other viral diseases; F17.210 Nicotine dependence, cigarettes, uncomplicated; G43.909 Migraine, unspecified, not intractable, without status migrainosus; I10 Essential (primary) hypertension; Z72.89 Other problems related to lifestyle; Z98.890 Other specified postprocedural states; Z79.899 Other long term (current) drug therapy
CPT/HCPCS: 36415; 49650; 80048; 85027; C1781; J0690; J1100; J1170; J1885; J2250; J2405; J2704; J2710; J7120; S2900; U0003